=== PATIENT | male | born 1955 | race Caucasian/White ===

== ENCOUNTER → 2018-02-21 11:05 | Emergency (ER) | payer OTHER ==
[~2018-02-21 11:05] MED LIST: Ketorolac INJ* 30 MG/ML 1 ML VIAL IV PUSH ONE; Ketorolac INJ* 60 MG/2 ML VIAL IM ONE
--- NOTE | 2018-02-21 11:22 | ED ---
HPI Chest Pain - HPI Summary HPI Summary: This pt is a 62 y/o male presenting to [facility] referred from Urgent Care c/o chest pain today. Pt reports last night at around 19:00 he began to experience left upper chest pain described as sharp. He states that as he was getting ready for bed he began to have left shoulder pain and left sided jaw ache. Pt then went through the night trying to sleep. He notes that at 04:00 pt began to have a sharp pain on his mid sternal chest. He describes the pain as non radiating that is exacerbated with deep breathing. His chest pain is not aggravated with arm movement. Pt additionally reports SOB. Currently he rates his pain 7/10 in severity and it increased to a 9 or 10 out of 10 with deep breathing. Denies fever, chills, nausea, vomiting, palpitations, cough. PMHx: pleurisy (25 years ago). Denies hx of DM, HTN, dyslipidemia. He only takes vitamins every day. Pt had his physical exam about 1 month ago and was told it was normal. - History of Current Complaint Chief Complaint: EDChestPainROMI Time Seen by Provider: 02/21/18 11:16 Hx Obtained From: Patient Onset/Duration: Started Hours Ago, Still Present Timing: Lasting Hours Current Severity: Moderate Pain Intensity: 7 Pain Scale Used: 0-10 Numeric Chest Pain Location: Mid Sternal Chest Pain Radiates: No Character: Sharp/Stabbing - sharp Aggravating Factor(s): Deep Breaths Alleviating Factor(s): Nothing Associated Signs and Symptoms: Positive: Chest Pain, Shortness of Breath. Negative: Fever, Chills, Nausea, Palpitations, Cough, Vomiting - Allergy/Home Medications Allergies/Adverse Reactions: Allergies Allergy/AdvReac Type Severity Reaction Status Date / Time No Known Allergies Allergy Verified 11/22/17 12:16 Home Medications: Home Medications NK [No Home Medications Reported] 02/21/18 [History Confirmed 02/21/18] PMH/Surg Hx/FS Hx/Imm Hx Endocrine/Hematology History: Denies: Hx Diabetes Cardiovascular History: Denies: Hx Hypercholesterolemia, Hx Hypertension, Hx Pacemaker/ICD Respiratory History: Reports: Other Respiratory Problems/Disorders - pleurisy GI History: Reports: Hx Gastroesophageal Reflux Disease - PEPSID Denies: Other GI Disorders History: Denies: Hx Dialysis, Hx Renal Disease Musculoskeletal History: Reports: Other Musculoskeletal History - Pain X3 months w/ swelling Lt knee Sensory History: Reports: Hx Cataracts Denies: Hx Contacts or Glasses, Hx Hearing Aid Opthamlomology History: Reports: Hx Cataracts Denies: Hx Contacts or Glasses Neurological History: Reports: Hx Migraine - LESS THAN 1 PER MONTH Psychiatric History: Denies: Hx Panic Disorder - Surgical History Surgery Procedure, Year, and Place: ABD HERNIA Xs 3; [facility] [place],. PEDRO PABLO CATARACTS, 2005 , [facility] [place],. NASAL SURGERY, 1995, [facility] [place],. LT KNEE ARTHROSCOPIC 04/2012 AT [facility] [place], Hx Anesthesia Reactions: No Infectious Disease History: No Infectious Disease History: Denies: Traveled Outside the [place] in Last 30 Days - Family History Known Family History: Negative: Cardiac Disease, Diabetes Family History: cancer - Social History Alcohol Use: Weekly Substance Use Type: Reports: None Smoking Status (MU): Never Smoked Tobacco Review of Systems Negative: Fever, Chills Positive: Chest Pain. Negative: Palpitations Positive: Shortness Of Breath. Negative: Cough Negative: Vomiting, Nausea All Other Systems Reviewed And Are Negative: Yes Physical Exam - Summary Physical Exam Summary: VITAL SIGNS: Reviewed. GENERAL: Patient is a well-developed and nourished male who is lying comfortable in the stretcher. Patient is not in any acute respiratory distress. HEAD AND FACE: No signs of trauma. No ecchymosis, hematomas or skull depressions. No sinus tenderness. EYES: PERRLA, EOMI x 2, No injected conjunctiva, no nystagmus. EARS: Hearing grossly intact. Ear canals and tympanic membranes are within normal limits. MOUTH: Oropharynx within normal limits. NECK: Supple, trachea is midline, no adenopathy, no JVD, no carotid bruit, no c- spine tenderness, neck with full ROM. CHEST: Symmetric, no tenderness at palpation LUNGS: Clear to auscultation bilaterally. No wheezing or crackles. CVS: Regular rate and rhythm, S1 and S2 present, no murmurs or gallops appreciated. ABDOMEN: Soft, non-tender. No signs of distention. No rebound, no guarding, and no masses palpated. Bowel sounds are normal. EXTREMITIES: FROM in all major joints, no edema, no cyanosis or clubbing. NEURO: Alert and oriented x 3. No acute neurological deficits. Speech is normal and follows commands. SKIN: Dry and warm Triage Information Reviewed: Yes Vital Signs On Initial Exam: Initial Vitals Temp Pulse Resp BP Pulse Ox 98.1 F 92 18 147/94 95 02/21/18 11:06 02/21/18 11:06 02/21/18 11:06 02/21/18 11:06 02/21/18 11:06 Vital Signs Reviewed: Yes Diagnostics - Vital Signs Vital Signs Temp Pulse Resp BP Pulse Ox 02/21/18 11:06 98.1 F 92 18 147/94 95 - Laboratory Result Diagrams: 02/21/18 11:14 02/21/18 11:14 Lab Statement: Any lab studies that have been ordered have been reviewed, and results considered in the medical decision making process. - Radiology Chest XR Xray Interpretation: No Acute Changes - IMPRESSION: No active cardiopulmonary disease. Dr. Hines has reviewed this report. Radiology Interpretation Completed By: Radiologist - EKG 11:12 Cardiac Rate: NL - at 88 bpm EKG Rhythm: Sinus Rhythm EKG Interpretation: No ST elevations. Q wave in lead III. Chest Pain Course/Dx - Course Assessment/Plan: This pt is a 62 y/o male presenting to [facility] referred from Urgent Care c/o chest pain today. Pt reports last night at around 19:00 he began to experience left upper chest pain described as sharp. He states that as he was getting ready for bed he began to have left shoulder pain and left sided jaw ache. Pt then went through the night trying to sleep. He notes that at 04: 00 pt began to have a sharp pain on his mid sternal chest. He describes the pain as non radiating that is exacerbated with deep breathing. His chest pain is not aggravated with arm movement. Pt additionally reports SOB. Currently he rates his pain 7/10 in severity and it increased to a 9 or 10 out of 10 with deep breathing. Denies fever, chills, nausea, vomiting, palpitations, cough. PMHx: pleurisy (25 years ago). Denies hx of DM, HTN, dyslipidemia. He only takes vitamins every day. Pt had his physical exam about 1 month ago and was told it was normal. Blood work without any significant abnormality. D-dimer is negative therefore no suspicion for PE since the patient doesn't have any tachycardia or hypoxia. Two negative troponins 4 hours apart with a negative EKG the suspicion for an acute coronary syndrome has significant decrease. The heart score is equal to 1. This patient does not have any comorbidities, his chest pain was resolved with Toradol and therefore we will discharge the patient home with follow-up from his primary care physician. Patient was given instructions to return to the emergency department if the chest pain returns, he develops any nausea, vomiting, diaphoresis, shortness of breath or syncopal episodes. The patient understands and agrees. The patient verbalizes understanding. At this time the patient is hemodynamically stable, alert and oriented 3. - Chest Pain Differential Diagnosis/HQI/PQRI: Acute VA, ACS, Angina, CHF, Chest Wall, GI Disease, Lower Respiratory Infection, Pulmonary Edema - Diagnoses Provider Diagnoses: Atypical chest pain Discharge - Sign-Out/Discharge Documenting (check all that apply): Patient Departure - Discharge home - Discharge Plan Condition: Stable Disposition: HOME Patient Education Materials: Chest Pain (ED) Referrals: Britta Gaona MD [Primary Care Provider] - Additional Instructions: FOLLOW UP WITH YOUR PRIMARY CARE PROVIDER WITHIN ONE WEEK FOR HIGH BLOOD PRESSURE NOTED TODAY. RETURN TO THE ED FOR ANY NEW OR WORSENING SYMPTOMS. - Billing Disposition and Condition Condition: STABLE Disposition: Home - Attestation Statements Document Initiated by Sonjaibtomás: Yes Documenting Scribe: Jane Sims Provider For Whom Willie is Documenting (Include Credential): Juliano Hines MD Scribe Attestation: Jane Thomas scribed for Juliano Hines MD on 02/22/18 at 1810. Scribe Documentation Reviewed: Yes Provider Attestation: The documentation as recorded by the Jane franks accurately reflects the service I personally performed and the decisions made by , Juliano Hines MD
[2018-02-21 11:43] LABS: ABS Basophils 0.1 10^3/ul (0-0.2); ABS Eosinophils 0.2 10^3/ul (0-0.6); ABS Lymphocytes 1.1 10^3/ul (1.0-4.8); ABS Monocytes 0.8 10^3/ul (0-0.8); ABS Neutrophils 6.1 10^3/ul (1.5-7.7); ABS Nucleated RBC 0 10^3/ul; Eosinophil % 2.1 % (0-6); Hematocrit 45 % (42-52); Hemoglobin 15.4 g/dl (14.0-18.0); Lymphocyte % 13.3 % (25-47); Mean Corpuscular HGB Conc 34 g/dl (31-36); Mean Corpuscular Hemoglobin 29 pg (27-31); Mean Corpuscular Volume 85 fL (80-94); Mean Platelet Volume 8.1 um3 (7.4-10.4); Nucleated Red Blood Cells % 0.1; Platelet Count 214 10^3/ul (150-450); Red Blood Count 5.34 10^6/ul (4.00-5.40); Red Cell Distribution Width 14 % (10.5-15); White Blood Count 8.2 10^3/ul (3.5-10.8)
[2018-02-21 11:52] LABS: EGFR Non-African American 74.2 (>60)
--- NOTE | 2018-02-21 12:32 | RAD ---
HISTORY: chest pain/shortness of breath COMPARISONS: None VIEWS: 1: frontal AP view of the chest at 11:55 AM FINDINGS: LINES AND TUBES: None. CARDIOMEDIASTINAL SILHOUETTE: The cardiomediastinal silhouette is normal for portable technique. PLEURA: The costophrenic angles are sharp. No pleural abnormalities are noted. LUNG PARENCHYMA: The lungs are clear. ABDOMEN: The upper abdomen is clear. There is no subphrenic gas. BONES AND SOFT TISSUES: No bone or soft tissue abnormalities are noted. IMPRESSION: NO ACTIVE CARDIOPULMONARY DISEASE.
[2018-02-21 15:08] VITALS: BP 141/87
== END | disposition home or self-care (01) ==
LOC: ED 11:05
DX: R07.89 Other chest pain (principal); R06.02 Shortness of breath; K21.9 Gastro-esophageal reflux disease without esophagitis
CPT/HCPCS: 36415; 71045; 80053; 82550; 82553; 83605; 83735; 83874; 83880; 84443; 84484; 85025; 85379; 93005; 96372; 99282; J1885

== ENCOUNTER 2022-09-20 14:47 | Observation (INO) ==
[2022-09-20] MEDS ORDERED: Piperacillin/Tazobac ADVAN 3.375 GM in NS 0.9% 100 ml BAG 100 ML IV ONE (14:54)
[2022-09-20] MEDS ORDERED: Morphine 2 MG/ML SYRINGE IV ONE (15:08)
[2022-09-20] MEDS ORDERED: Acetaminophen IV 1 GM/100ML 1,000 MG/100 ML BAG IV PRN (15:08)
[2022-09-20] MEDS ORDERED: Lactated Ringers 1000 ml BAG 1,000 ML IV ONE (15:09)
[2022-09-20 15:15] LABS: ABS Basophils 0.1 10^3/uL (0.0-0.1); ABS Eosinophils 0.1 10^3/uL (0.0-0.5); ABS Lymphocytes 0.7 10^3/uL (1.0-4.8); ABS Monocytes 0.7 10^3/uL (0.0-1.1); ABS Neutrophils 6.7 10^3/uL (1.5-7.6); ABS Nucleated RBC 0.01 10^3/ul; Eosinophil % 1.2 %; Hematocrit 41.8 % (38-53); Hemoglobin 14.3 g/dL (13.2-16.3); Lymphocyte % 8.7 %; Mean Corpuscular Hemoglobin 28.7 pg (27-33); Mean Corpuscular Hgb Conc 34.2 g/dL (31-36); Mean Corpuscular Volume 83.8 fL (80-97); Mean Platelet Volume 7.5 fL (7.5-11.2); Nucleated Red Blood Cells % 0.1 /100 WBC (0.0-0.4); Platelet Count 263 10^3/uL (150-450); Red Blood Count 4.98 10^6/uL (4.06-5.63); Red Cell Distribution Width 14.1 % (12-17); White Blood Count 8.3 10^3/uL (3.6-10.2)
[2022-09-20 15:25] LABS: INR 1.23 (0.88-1.18)
[2022-09-20 16:07] LABS: Albumin 4.2 g/dL (3.2-5.2); Albumin/Globulin Ratio 1.5 (1-3); C Reactive Protein 185.42 mg/L (<8.01); Calcium 8.6 mg/dL (8.6-10.3); Creatinine, Serum 0.98 mg/dL (0.67-1.17); Globulin 2.8 g/dL (2-4); Potassium 4.3 mmol/L (3.5-5.0); Total Bilirubin 0.7 mg/dL (0.2-1.0); eGFR CKD-EPI 85.6 (>60)
[2022-09-20] MEDS ORDERED: Ondansetron 4 mg VIAL 2 MG/ML 2 ml VIAL IV PRN (16:39)
[2022-09-20] MEDS ORDERED: HYDROmorphone 0.5 MG/0.5 ML SYRINGE IV SLOW PU PRN (16:45)
[2022-09-20] MEDS: Cefepime 2 GM in Dextrose 2 GM/50 ML BAG IV SCH (17:21)
[2022-09-20] MEDS: metroNIDAZOLE IV 500 MG/100ML 500 MG/100 ML BAG IVPB SCH (18:00)
[2022-09-21] MEDS: metroNIDAZOLE IV 500 MG/100ML 500 MG/100 ML BAG IVPB SCH ×2 (02:13→09:49)
[2022-09-21] MEDS: Cefepime 2 GM in Dextrose 2 GM/50 ML BAG IV SCH (05:40)
[2022-09-21 06:30] LABS: ABS Eosinophils 0.2 10^3/uL (0.0-0.5); ABS Lymphocytes 0.7 10^3/uL (1.0-4.8); ABS Monocytes 0.5 10^3/uL (0.0-1.1); ABS Neutrophils 4.7 10^3/uL (1.5-7.6); Eosinophil % 3.5 %; Hemoglobin 12.7 g/dL (13.2-16.3); Lymphocyte % 10.9 %; Mean Corpuscular Hemoglobin 28.8 pg (27-33); Mean Corpuscular Hgb Conc 34.4 g/dL (31-36); Mean Corpuscular Volume 83.8 fL (80-97); Mean Platelet Volume 7.4 fL (7.5-11.2); Nucleated Red Blood Cells % 0.1 /100 WBC (0.0-0.4); Platelet Count 223 10^3/uL (150-450); Red Blood Count 4.42 10^6/uL (4.06-5.63); Red Cell Distribution Width 13.9 % (12-17); White Blood Count 6.2 10^3/uL (3.6-10.2)
[2022-09-21 07:00] LABS: C Reactive Protein 139.84 mg/L (<8.01); Creatinine, Serum 0.99 mg/dL (0.67-1.17); Potassium 4.5 mmol/L (3.5-5.0); eGFR CKD-EPI 84.5 (>60)
[2022-09-21 11:24] VITALS: BP 120/76
== END 2022-09-21 15:40 | disposition home or self-care (01) ==
LOC: EDHOLD 14:47 → ED 14:47 → SSU 18:39
PROVIDERS: ADMIT Surgery Surgical Critical Care; ATTEND Surgery Surgical Critical Care